=== PATIENT | male | born 1980 | race Caucasian/White ===

== ENCOUNTER 2018-02-26 20:17 | Emergency (ER) | payer OTHER ==
[~2018-02-26] VITALS: Ht 165.1 cm; Wt 68.6 kg
[2018-02-26 20:19] VITALS: BP 141/102; PULSE 76; TEMP 37; O2SAT 95; Ht 165.1 cm; Wt 68.6 kg
--- NOTE | 2018-02-27 00:44 | EMERGENCY ROOM VISIT NOTE ---
ED Visit Note First contact with patient: 20:25 Chief Complaint: I hit my head and have to be checked for concussion. History of Present Illness: Mr. Lee is a 37-year-old white male who ambulates into the ED accompanied by his mother concerned for possible concussion. 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 He reports when he stepped in the van he struck his head on the door locking mechanism. He reports at the time of the injury he did not have a loss of consciousness but did develop some mild dizziness. Additionally he reports the sensation of a bright light shining in his eyes obliterating his vision. This lasted for approximately 10 minutes and then self resolved. He reports approximately 10-15 minutes after that he was carrying something back to the van and when he was attempting to turn his body towards the van he started walking backwards and then fell. When he fell this time he did not strike his head. Patient goes on to report that although he has worked for the last 4-5 hours he has concerns for possible concussion and was encouraged by his boss to be evaluated. Currently patient reports she has a very mild headache in the area of the left parietal area where he struck his head. He rates his discomfort 1/10. His pain is nonradiating. His pain worsens mildly with palpation. He has not identified any alleviating factors related to the pain. He has not taken any medication for pain prior to arrival at the hospital. Currently he denies any associated symptoms lightheadedness, visual changes, hearing changes, difficulty speaking, difficulty swallowing, difficulty ambulating/coordinating body movements, neck pain, back pain, chest pain, shortness of breath, abdominal pain, nausea, vomiting, extremity weakness/numbness/tingling. Review of Systems: As noted above in history of present illness. All body systems were reviewed and found to be negative as noted above. Past Medical History: Status post unspecified gastric surgery as an . Current Medications: Patient denies. Allergies to Medications: Penicillin. Social History: Patient is currently employed; he feels safe in his home environment; he denies tobacco and alcohol use. Physical Examination: Vital Signs: Date Time Temp Pulse Resp B/P (MAP) Pulse Ox O2 Delivery O2 Flow Rate FiO2 8/18 20:19 37.0 76 18 141/102 95 Room Air GENERAL: 37-year-old male in mild distress due to symptoms, nontoxic-appearing, afebrile and hemodynamically stable. NEUROLOGICAL: Awake, alert and oriented to person, place and time. Answering questions appropriately and following commands. Normal gait. Good hand eye coordination. Romberg test negative. Pronator drift test negative. Cranial nerves II through XII grossly intact. Normal rapid alternating movements of the hands and fingers. Good long-term memory recall. Moderate short-term memory recall 2/3. Difficulty spelling and counting backwards. SKIN: Warm, dry and pink. HEENT: Atraumatic and normocephalic. Skull: Mild tenderness in the right frontal/parietal area with a small subcutaneous lump, probable hematoma. I do not appreciate any bony deformity or crepitus. There is no breaks in the skin. No raccoons eyes or lambert signs. No drainage from the ears of the nostril; no hemotympanum. Face: No bony deformity, bony crepitus, swelling or ecchymosis. PERRLA. EOMI without nystagmus. Sclera white and conjunctiva pink. No malocclusion. No intraoral trauma. Airway patent. Speech is normal and clear. Trachea midline. No jugular venous distention. BACK: No tenderness over the bony spine. Full range of motion of the cervical spine. THORAX: Lungs sounds are clear to auscultation and equal bilaterally with symmetrical chest wall. ABDOMEN: Flat, soft and nontender. Positive bowel sounds in all quadrants. No guarding, rigidity or organomegaly. EXTREMITIES: Moves all extremities well on command and with purpose. All distal neurovascular statuses are intact and equal bilaterally. 5/5 muscle strength in all movements of the shoulders, elbows, forearms, wrists and hands. ED Course: Patient is assessed as noted above. Patient's medication list was reviewed. Patient was offered pain medication and refused. The risks and benefits of using a watch and wait approach and an CT scan at this time were discussed with the patient; he elected to use a watch and wait approach. Patient was educated about today's findings and instructed on his treatment plan ; he verbalized understanding and agreement with this plan. Clinical Impression: Mild closed head injury. Work-related injury. Disposition: Patient discharged home in stable condition accompanied by his mother; prior to departure he was reassessed and subjectively reported he was pain-free. Plan: Patient was encouraged you 650 mg of acetaminophen every 6 hours as needed for pain. Patient was encouraged to rest for the next 48 hours and no strenuous activities. Patient was encouraged to avoid alcohol use for the next 48 hours. Patient was educated on signs of worsening head injury. Patient was encouraged to follow-up with Work[employer] Compensation for recheck in 3 -5 days. Patient was encouraged return to the ED for any signs of worsening head injury or any new/concerning symptoms.
== END 2018-02-26 20:48 | disposition home or self-care (01) ==
LOC: C.EDB 20:19 → C.EDD 20:48
DX: S09.90XA Unspecified injury of head, initial encounter (principal); W22.8XXA Striking against or struck by other objects, initial encounter; Y93.89 Activity, other specified; Y99.0 Civilian activity done for income or pay